=== PATIENT | male | born 1965 | race Two or more races ===

== ENCOUNTER 2021-01-10 21:06 | Emergency (ER) | payer OTHER ==
[~2021-01-10] VITALS: Ht 180.3 cm; Wt 127.0 kg
[2021-01-10] MEDS ORDERED: NALO4SPR NS (21:25)
--- NOTE | 2021-01-10 21:30 | NUR ---
WADE TO ER BED 12. BROUGHT IN FOR OVERDOSE. REPORTED TO HAVE TAKEN HEROIN. GIVEN NARCAN 8MG BY PEOPLE WHO HE WAS WITH. [facility] GAVE ANOTHER NARCAN 2MG. PT AWOKEN UP HE WAS BEING ROLLED TO THE BED. PT PLACED ON VIA [place] SATTING @ 92%, NOW SATTING @ 97%. WAS AT THE BEDSIDE FOR EVAL. WILL CONTINUE TO [facility] PT
--- NOTE | 2021-01-10 23:47 | NUR ---
PT IN BED SLEEPING NO NOTED DISTRESS
--- NOTE | 2021-01-11 04:07 | NUR ---
Patient discharged to home in stable condition. Written and verbal after care instructions given. Patient verbalizes understanding of instruction.
[2021-01-11 04:08] VITALS: BP 125/68
== END 2021-01-11 04:09 | disposition home or self-care (01) ==
LOC: ER 21:08
DX: T40.411A Poisoning by fentanyl or fentanyl analogs, accidental (unintentional), initial encounter (principal); F15.129 Other stimulant abuse with intoxication, unspecified; R00.0 Tachycardia, unspecified; Y92.89 Other specified places as the place of occurrence of the external cause